=== PATIENT | female | born 2005 | race Caucasian/White ===

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

== ENCOUNTER 2025-02-25 05:32 | Emergency (ER) | payer BC, SELFPAY ==
[2025-02-25 05:34] VITALS: BP 137/70; PULSE 77; RESP 16; TEMP 36.4; O2SAT 100
[2025-02-25] MEDS: Ketorolac 15 MG/ML VIAL IM (06:00)
[2025-02-25] MEDS: Acetaminophen 500 MG TAB 1000 MG PO (06:01)
--- NOTE | 2025-02-25 06:08 | W.ED.GENAD ---
Discharge Plan Disposition Patient Disposition: Home Condition: Good Discharge Details Clinical Impression: Musculoskeletal arm pain Primary Care Provider: Velvet Alcocer ED Provider: Areli Tello Home Meds and New Rx's Prescriptions: Continued norgestimate-ethinyl estradiol [Tri-Sprintec (28)] 0.18/0.215/0.25 mg-0.035mg (28) tablet 1 tab PO DAILY Patient Comments: TAKE 1 TABLET BY MOUTH ONCE DAILY escitalopram oxalate 20 mg tablet 20 mg PO DAILY lisdexamfetamine 40 mg capsule 40 mg PO DAILY Patient Comments: TAKE ONE CAPSULE BY MOUTH EVERY DAY Discharge Instructions Instructions: Muscle and Bone Pain (DC) Additional Instructions: Tylenol and ibuprofen over the counter for pain; follow the directions on the bottle. Call your primary care doctor on Wednesday to schedule an appointment for within the next 72 hours to follow up on your visit here. Return to the emergency department for new or worsening symptoms. HPI General Mode of arrival: ambulatory. Date/Time Provider Initiated Documentation: 02/25/25 05:32. Limitations to Documentation: no limitations. Information obtained by: patient and family. HPI Narrative: 19yo F presenting with right shoulder pain. Woke on the morning of 02/22 with pain in her right shoulder, hurts to raise her arm and brush her hair. Pain has been constant and worsening since onset. Trying heat, ice, and ibuprofen at home without much improvement. Does not recall any injury to the area. No unusual exertion the day before. No numbness, tingling, or weakness in her arm. Has never felt anything like this before. No pain elsewhere. Otherwise in her usual state of health. Related Data Home Medications ?Medication ?Instructions ?Recorded ?Confirmed escitalopram oxalate 20 mg tablet 20 mg PO DAILY 02/25/25 02/25/25 lisdexamfetamine 40 mg capsule 40 mg PO DAILY 02/25/25 02/25/25 norgestimate-ethinyl estradiol 1 tab PO DAILY 02/25/25 02/25/25 0.18mg/0.215mg/0.25mg-0.035mg(28)tablet (Tri-Sprintec (28)) Allergies Allergy/AdvReac Type Severity Reaction Status Date / Time No Known Allergies Allergy Unverified 02/25/25 05:43 General Stated Complaint: Orthopedic ALEXIS: 3 Review of Systems Narrative: see HPI Exam Narrative Exam Narrative: General: Alert, well appearing, well nourished, in no acute distress. Head: Normocephalic, atraumatic Neck: Trachea midline, ?Neck supple. No midline c-spine tenderness. Cardiac: No cyanosis. Resp: No respiratory distress. Speaking in full sentences. Abd: ?Non-distended Extremities: ?No deformities.? No peripheral edema. RUE: No bony tenderness to shoulder, clavicle, or scapula. Sensation intact to light thought throughout. 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 Limited strength 2/t pain with shoulder abduction and external rotation. Pain with passive abduction and external rotation. Good adduction & internal rotation. Neurologic: GCS 15. ? Moves all extremities freely against gravity Course Vital Signs Vital signs: Vital Signs Temperature 36.4 C L 02/25/25 05:34 Pulse 77 02/25/25 05:34 Respiratory Rate 16 02/25/25 05:34 Blood Pressure 137/70 02/25/25 05:34 Pulse Oximetry 100 02/25/25 05:34 Temperature 36.4 C L 02/25/25 05:34 Temperature Source Tympanic 02/25/25 05:34 Pulse 77 02/25/25 05:34 Respiratory Rate 16 02/25/25 05:34 Blood Pressure 137/70 02/25/25 05:34 Blood Pressure Position Sitting 02/25/25 05:34 Pulse Oximetry 100 02/25/25 05:34 Oxygen Delivery Method Room Air 02/25/25 05:34 Oxygen Flow Rate 0 02/25/25 05:34 Pain Level 7 02/25/25 06:01 Medical Decision Making 19yo F presenting with right shoulder pain, onset on waking on 02/22. Vital signs reassuring on arrival, on exam clear reproducible pain with active and passive ROM at right shoulder with abduction and external rotation. Neurovascular intact. Not suggestive of cardiac pathology or pulmonary embolism; would not get labs or EKG. Will give tylenol and toradol for symptoms here. Plain films right shoulder with no dislocation or displaced fracture on my view; radiology read with no acute findings. On reassessment patient reports pain has improved after medication. Advised continued symptomatic treatment at home, PCP followup. Discharged home; discharge instructions and return precuations were reviewed with patient who verbalized understanding. All questions were answered and she is in full agremeent with the plan. PFSH All Active Problems (Updated 02/25/25 @ 06:16 by Areli Tello MD) Musculoskeletal arm pain (Acute) Social History Smoking/Tobacco Use Status: Never Smoking risk assessment performed?: Yes Alcohol Intake: never Drug use: Occasionally Substance use type: marijuana Housing: house Do you feel safe at home: Yes Do you feel safe in your relationship?: Yes
--- NOTE | 2025-02-25 06:23 | DI.RAD_ITS ---
Exam(s) XR SHOULDER RT COMPLETE 2+V EXAM: XR SHOULDER RT COMPLETE 2+V CLINICAL HISTORY: atraumatic right shoulder pain. TECHNIQUE: 2D digital imaging was performed. COMPARISON: No exams were available for comparison FINDINGS: Five views. No evidence of fracture or dislocation or abnormal soft tissue calcifications. The subacromial space is not diminished. There is no diminution of the subacromial space. No evidence of os acromial. No degenerative changes in the glenohumeral and AC joints. Ipsilateral right clavicle appears unremarkable. Bone density normal. No osseous lesions. IMPRESSION: No significant radiograph findings in the right shoulder DATA REPOSITORY: RADIATION DOSE DELIVERED:
--- NOTE | 2025-02-25 07:11 | DI.VRAD_ITS ---
PROCEDURE INFORMATION: Exam: XR Right Shoulder Exam date and time: 02/25/2025 6:17 AM Age: 19 years old Clinical indication: Other: Atraumatic right shoulder pain TECHNIQUE: Imaging protocol: Radiologic exam of the right shoulder. Views: 2 or more views. COMPARISON: No relevant prior studies available. FINDINGS: Bones/joints: Normal. Soft tissues: Normal. IMPRESSION: No acute findings. Dictated and Authenticated by: Martha Contreras MD. Orderin Omer Singleton MD
[2025-02-25 07:12] VITALS: BP 123/73; PULSE 75; RESP 16; O2SAT 100
== END 2025-02-25 07:17 | disposition home or self-care (01) ==
PROVIDERS: Emergency Provider Student in an Organized Health Care Education/Training Program; PCP Family Medicine
DX: M79.601 Pain in right arm (principal)
CPT/HCPCS: 99283; 99284; 96372; 73030; J1885